=== PATIENT | male | born 1960 | race Caucasian/White ===

== ENCOUNTER 2023-02-09 06:44 | Day surgery (SDC) | payer BC, OTHER ==
[~2023-02-09 06:44] MED LIST: Dextrose 5%-0.45% NaCl 1,000 ML IV SCH; Sodium Chloride 0.9% 10 ML Syringe FLUSH PRN; Sodium Chloride 0.9% 10 ML Syringe FLUSH SCH
[2023-02-09] MEDS ORDERED: fentaNYL 100 MCG/2 ML SDV ONE (08:21)
[2023-02-09] MEDS ORDERED: Midazolam 1 MG/ML 2 ML SDV ONE (08:21)
[2023-02-09] MEDS ORDERED: fentaNYL 100 MCG/2 ML SDV IV ONE ×2 (08:23→08:24)
[2023-02-09] MEDS ORDERED: Midazolam 1 MG/ML 2 ML SDV IV ONE ×6 (08:24→08:30)
[2023-02-09 09:50] VITALS: BP 110/67; PULSE 71
== END 2023-02-09 10:15 | disposition home or self-care (01) ==
LOC: DL.ENDO 06:44
PROVIDERS: ATTEND Internal Medicine Gastroenterology
DX: Z12.11 Encounter for screening for malignant neoplasm of colon (principal); K57.30 Diverticulosis of large intestine without perforation or abscess without bleeding; K64.4 Residual hemorrhoidal skin tags; K64.8 Other hemorrhoids; E78.00 Pure hypercholesterolemia, unspecified; Z98.890 Other specified postprocedural states
CPT/HCPCS: 45378; J2250; J3010; J7042

== ENCOUNTER 2023-10-09 14:28 | Emergency (ER) | payer BC ==
[2023-10-09] MEDS ORDERED: Sodium Chloride 0.9% 10 ML Syringe FLUSH PRN (14:48)
[2023-10-09 15:02] LABS: BASOPHILS PERCENT AUTO 0.2 % (0.0-1.0); EOSINOPHILS PERCENT AUTO 1.9 % (1.0-3.0); HEMATOCRIT 45.1 % (40.0-54.0); HEMOGLOBIN 15.3 g/dL (14.0-18.0); LYMPHOCYTES PERCENT AUTO 27.8 % (20.5-50.1); MEAN CORPUSCULAR HEMOGLOBIN 29.9 pg (27.0-34.0); MEAN CORPUSCULAR HGB CONC 33.9 g/dL (33.0-35.0); MEAN CORPUSCULAR VOLUME 88.1 fL (80-100); MONOCYTES PERCENT AUTO 8.5 % (2-8); NEUTROPHILS PERCENT AUTO 61.6 % (42.2-75.2); PLATELET COUNT,PLT 305 10^3/uL (150-450); RED BLOOD CELL COUNT 5.12 10^6/uL (4.6-6.2); WHITE BLOOD CELL COUNT,WBC 10.1 10^3/uL (5.0-10.0)
[2023-10-09 15:23] LABS: PROTHROMBIN TIME 10.5 SEC (9.0-12.0)
[2023-10-09 15:25] LABS: ALBUMIN 3.9 g/dL (3.4-5.0); ANION GAP 9.9 mEq/L (7-13); BILIRUBIN TOTAL 0.4 mg/dL (0.2-1.0); BUN/CREATININE RATIO 28.7 (No establ ref range); CALCIUM 9.2 mg/dL (8.5-10.1); CREATININE 1.01 mg/dL (0.70-1.30); EST CRCL DRUG DOSING (CG) 73.89 mL/min; MAGNESIUM 1.9 mg/dL (1.8-2.4); POTASSIUM,K 3.9 mmol/L (3.5-5.1); PROTEIN TOTAL,TP 7.8 g/dL (6.4-8.2)
[2023-10-09 16:25] VITALS: BP 141/83; PULSE 71
== END 2023-10-09 17:20 | disposition home or self-care (01) ==
LOC: DL.ED 14:28
DX: R07.9 Chest pain, unspecified (principal); M25.562 Pain in left knee; Z90.49 Acquired absence of other specified parts of digestive tract; Z79.899 Other long term (current) drug therapy
CPT/HCPCS: 36415; 70450; 71045; 80053; 83690; 83735; 84484; 85025; 85610; 85730; 93005; 93010; 93971; 99284; 99285; J3490